=== PATIENT | female | born 1930 | race Caucasian/White ===

== ENCOUNTER 2018-10-23 22:33 | Observation (INO) | payer SELFPAY ==
[~2018-10-23] VITALS: Ht 152.4 cm; Wt 66.4 kg
[2018-10-23] MEDS ORDERED: BAYER CHEWABLE81 MG PO (22:48)
[2018-10-23] MEDS ORDERED: NORVASC2.5 MG PO (22:49)
[2018-10-23] MEDS ORDERED: BETAPACE 80 MG80 MG PO (22:50)
[2018-10-23] MEDS ORDERED: COZAAR50 MG PO (22:50)
[2018-10-23] MEDS ORDERED: VITAMIN D31000 UNIT PO (22:52)
[2018-10-23] MEDS ORDERED: VITAMIN B-2100 MG PO (22:52)
[2018-10-23 23:28] VITALS: BP 210/68
[2018-10-23 23:29] LABS: BASOPHILS 0.4 % (0-2); EOSINOPHILS 4.2 % (0-7); HEMATOCRIT 36.8 % (36.0-48.0); HEMOGLOBIN 12.5 g/dL (12-16); IMMATURE GRANULOCYTES 0.3 % (0-5); LYMPHOCYTES 12.1 % (15-50); MCH 30.6 pg (26.0-34.0); MCV 90.2 fL (80.0-100.0); MEAN PLATELET VOLUME 10.8 fL (7.4-10.4); MONOCYTES 9.5 % (2-11); NEUTROPHILS 73.5 % (40-80); PLATELET COUNT 218 10x3/uL (130-400); RBC 4.08 10x6/uL (4.00-5.40); RDW 13.2 % (11.5-14.5); WBC 9.3 10x3/uL (4.8-10.8)
[2018-10-23 23:39] LABS: APTT 25.2 SECONDS (22.8-39.4); INR 1.04 (0.85-1.17); PROTIME 13.1 SECONDS (11.6-15.0)
[2018-10-23 23:44] LABS: ALBUMIN 3.2 g/dL (3.4-5.0); ALKALINE PHOSPHATASE 82 U/L (46-116); ALT (SGPT) 18 U/L (10-68); BILIRUBIN - TOTAL 0.35 mg/dL (0.2-1.3); CALC OSMOLALITY 287 mosm/kg (275-300); CALCIUM 8.3 mg/dL (8.5-10.1); CARBON DIOXIDE 28.7 mmol/L (21.0-32.0); CHLORIDE - SERUM 106 mmol/L (98-107); CREATININE - SERUM 0.7 mg/dL (0.6-1.3); GLUCOSE 126 mg/dL (74-106); SODIUM 142 mmol/L (136-145); UREA NITROGEN 21 mg/dL (7-18); eGFR NON AFRICAN AMERICAN 83 mL/min (90-120)
[2018-10-23 23:54] LABS: CKMB 2.8 U/L (0.0-3.6); CREATINE KINASE 93 UL (21-215); MAGNESIUM - SERUM 1.9 mg/dL (1.8-2.4)
[2018-10-23 23:57] LABS: TROPONIN-I < 0.017 ng/mL (0.000-0.060)
--- NOTE | 2018-10-24 01:30 | NUR ---
CALLED TO ROOM, PATIENT COMPLAINS OF TINGLING IN LEFT HAND AND PAIN TO THE LEFT SIDE AND FRONTAL PART OF HER HEAD. DR. MENDOZA NOTIFIED, PATIENT TAKEN TO CT VIA STRETCHER. PATIENT WAS THEN PLACED IN T3, WIT A CALL IN TO [facility]BH[facility]. AFTER DR. MENDOZA AND DR. SAMS SPOKE THE [facility] CONSULT WAS CALLED OFF. PATIENT WAS TAKEN BACK TO HER ROOM. NO DEFICITS WERE NOTED. PATIENTS BP 176/85 AT THIS TIME.
--- NOTE | 2018-10-24 01:49 | NUR ---
STOP TIME FOR NS 0155.
--- NOTE | 2018-10-24 02:48 | NUR ---
ATTEMPTED TO ADMIT PT BUT SHE DIDNT SPEAK ANY FRISIAN. ATTEMPTED TO CONNECT WITH SUPERVISOR SLATE SPLITTING BUT WAS UNSUCCESSFUL.
[2018-10-24 02:50] VITALS: BP 138/82; BMI 28.5
--- NOTE | 2018-10-24 03:04 | NUR ---
OBTAINED ACCURATE MEDICATION LIST HOWEVER UNABLE TO GET PHARMACY PT SPEAKS LITTLE TO ZERO FRISIAN ALONG WITH . WAS ABLE TO BREIFLY GET DIGITAL RESEARCH ANALYST ON THE PHONE BUT THEN HE SAID "HAVE A GOOD NIGHT" EACH TIME IT TOOK AT LEAST 30MINS TO EVEN GET THEM, ALSO PHONE IS VERY DIFFICULT TO HEAR AND ITS JUST POOR COMMUNICATION ALL OVER. NOTIFIED WALLPAPER EMBOSSER HELPER ANA LAURA AND SHE STATES "WELL THATS ALL WE HAVE" SO BASICALLY UNABLE TO GET COMPLETE ADMISSION DONE. DID MENTION SOMETHING ABOUT SON COMING TOMORROW HOWEVER UNSURE WHAT HE WAS SAYING. WILL PASS ON IN REPORT TO SEE ABOUT GETTING A DIFFERENT DIGITAL RESEARCH ANALYST WHO WILL STAY ON THE PHONE OR ABOUT ANY OTHER FAMILY COMING. HISTORY NOT COMPLETED FOR ADMISSION WE DONT WANT TO INTERPRET IT INCORRECTLY. WILL CTM AND PROVIDED BEST CARE WE CAN FOR PATIENT DESPITE THE LANGUAGE BARRIER AND LACK OF RESOURCES!
[2018-10-24 04:46] VITALS: BP 138/82
[2018-10-24 06:33] LABS: CKMB 2.5 U/L (0.0-3.6); CREATINE KINASE 110 UL (21-215)
[2018-10-24 06:37] LABS: TROPONIN-I < 0.017 ng/mL (0.000-0.060)
--- NOTE | 2018-10-24 07:50 | NUR ---
ASSESSMENT DONE. DENIES NEEDS.
[2018-10-24 08:15] VITALS: BP 161/80
--- NOTE | 2018-10-24 09:04 | NUR ---
I have reviewed this patient and I concur with the Shift Assessment completed by the Licensed Practical Nurse today this shift.
[2018-10-24] MEDS ORDERED: NORVASC5 MG PO (11:46)
[2018-10-24 12:00] VITALS: Ht 152.4 cm; Wt 66.4 kg
--- NOTE | 2018-10-24 12:49 | NUR ---
DC GIVEN TO PT
--- NOTE | 2018-10-24 12:52 | NUR ---
DC HOME PER PERSONAL BUS
--- NOTE | 2018-10-25 07:52 | MORECARE ---
CASE MANAGEMENT DISCHARGE SUMMARY PATIENT: TIMBO HARLEY UNIT: [id number] ADM DATE: 10/24/18 AGE: 88 : [birth year] SEX: F ROOM/BED: D.2121 AUTHOR: JEB RESTREPO PHYSICIAN: REFERRING PHYSICIAN: ROSE MARIE ANGELES MD DATE OF SERVICE: 10/25/18 Discharge Plan Patient Name: TIMBO HARLEY Facility: [facility]:[place] : 1930 Planned Disposition: Home Anticipated Discharge Date: 10/24/18 Discharge Date: 10/24/2018 Expected LOS: 1 Initial Reviewer: [email or web address] Initial Review Date: 10/25/2018 Generated: 10/25/18 8:52 am Patient Name: TIMBO HARLEY Page [id number] at 0752 All edits/amendments must be made on the electronic document DICTATION DATE: 10/25/18751 MEDICAL EQUIPMENT REPAIR TECHNICIAN: [email or web address] 10/25/18 075 RPT#: [id number] DC DATE:10/24/18 STATUS: DIS IN [facility] [address] [place] [address] END OF REPORT
== END 2018-10-24 12:52 | disposition home or self-care (01) ==
LOC: D.ER 22:33 → OBSVTIME 10-24 01:05 → D.M2 10-24 01:05
PROVIDERS: Family Medicine; ADMIT Internal Medicine Nephrology; ATTEND Internal Medicine Nephrology
DX: I10 Essential (primary) hypertension (principal); N17.9 Acute kidney failure, unspecified; E78.5 Hyperlipidemia, unspecified; I48.91 Unspecified atrial fibrillation; E11.9 Type 2 diabetes mellitus without complications; I25.10 Atherosclerotic heart disease of native coronary artery without angina pectoris